=== PATIENT | male | born 1935 | race American Indian/Alaskan Native ===

== ENCOUNTER 2024-03-26 13:57 | Outpatient (RCR) | payer MEDICARE, OTHER, SELFPAY ==
--- NOTE | 2024-04-09 01:17 | CTCFLWUP_ITS ---
Patient: MIKE GREEN : 1935 Page 4 of 5 FOLLOW UP NOTE DATE OF SERVICE: 03/26/2024 NAME: MIKE GREEN ACCOUNT: [id number] : 1935 AGE: 89 INTERVAL HISTORY: Patient doing well. HISTORY OF PRESENT ILLNESS: Mr. Green is a 89-year-old Indian male who was seen in our clinic recently becaus e of leukocytosis, and various immature cells in the peripheral blood. 02/08/2022: WBC 56.2, ANC 20.8, metamyelocytes 5%, bands 2%, myelocytes 14%, promyelocytes 3%, blast/ blast like cells 1%, basophils 20%, eosinophils 11%. 02/24/2022: WBC 106.2, hemoglobin 13.3, platelets 866,000, basos 10%, bands 8%, metamyelocytes 8%, my elocytes 20%, promyelocytes 3%, blast/blast leg cells 1%, creatinine 1.66, uric acid 10.c6 05/05/2022: WBC count 137.5, hemoglobin 12.2, platelets 554,000, creatinine 1.5 05/12/2022 - 05/30/2022: Patient was on imatinib 400 mg p.o. daily. Unfortunately he was not able to to lerate it. He developed significant facial swelling, shortness of breath as well as bilateral lower extremity swelling requiring him to be treated with Lasix. 06/25/2022: BCR?ABL transcript level 10/18/2022: WBC count 154.7, hemoglobin 13.0, platelets 664,000, creatinine 1.62 10/19/2022: Mr. Green was started on Sprycel 20 mg p.o. daily. EKG 07/13/2022: ECHO 07/13/2022: XR CHEST 2V 07/13/2022: 02/07/2023: WBC 8.0, ANC 6.8, basophil 0.5, immature granulocytes 0%, OTHER MEDICAL HISTORY/CONDITIONS: HTN? 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 Tobacco?Pack?per?Day:?1 Tobacco?Use?Years:?20 Tobacco?Use:?Quit?30?yrs?ago ETOH Use:?3-5 beers ; 3-4 days/week x 40yrs Drug?Note:?Denies Social?History?Note:?Lives?alone MEDICATIONS: 1. allopurinol - 300 mg 1 tab Daily 2. Lasix - 40 mg 1 tab Each Day 3. lisinopril - 10 mg 1 tab Daily 4. omeprazole - 20 mg 1 Capsule Daily 5. rosuvastatin - 10 mg 1 tab Daily 6. Sprycel - 20 mg 1 tab As directed Medications Last Reconciled by Nguyen Bishop MA on 03/26/2024 ALLERGIES: No Known Drug Allergies REVIEW OF SYSTEMS: A complete 14-point review of systems was performed and is negative except as noted in interval histo ry. PHYSICAL EXAMINATION: VITAL SIGNS: Temperature?98.2, B/P?153/77, Oxygen?Saturation?93% Weight?195.2?lbs PAIN: 0 - No pain ECOG Performance Status: 0 - Asymptomatic and fully active GENERAL APPEARANCE: Appears well, in no apparent distress, appropriately interactive. HEENT: Normocephalic, no temporal wasting, normal conjunctiva, no scleral icterus, normal hearing, li ps without lesions, neck normal range of motion. CARDIOVASCULAR: Not assessed. PULMONARY: Normal respiratory effort, no respiratory distress or use of accessory muscles, speaking i n full sentences, no tachypnea. EXTREMITIES: No pedal edema or cyanosis. SKIN: Normal skin appearance. NEUROLOGIC: Alert and oriented x4. PSHYCHIATRIC: Appropriate affect, mood normal, behavior normal, intact thought and speech. LABORATORY DATA: I have personally reviewed and interpreted each of the patient?s relevant lab tests, abnormal finding s are below: Date 02/03/24 ??WHITE?BLOOD?COUNT?(Thou/mm3) 6.5 ??RED?BLOOD?COUNT?(Miln/mm3) 4.08?L ??HEMOGLOBIN?(gm/dl) 12.7?L ??HEMATOCRIT?(%) 37.8?L ??PLATELET?COUNT?(Thou/mm3) 245 ??NEUTROPHILS?%,?AUTO?(%) 75 ??LYMPH?%,?AUTO?(%) 14 ??NEUTROPHILS,?AUTO?(Thou/mm3) 4.9 ASSESSMENT/PLAN: 1. Chronic myelogenous leukemia. Chronic phase. Currently Mr. Green is on Sprycel 20 mg p.o. 3 times a week. He was not able to tolerate Sprycel 20 mg p.o. daily which unfortunately was causing bilateral leg swelling. His WBC has normalized. BCR/ABL transcript levels are slowly coming down unable to tolerate imatinib. Skin rash resolved. 2. Hypertension 3. Coronary artery disease. Currently being followed by Dr. Page Paredes 1. Sprycel to 20 mg p.o 4 times a week. 2. I will see him back in clinic in 2 months with CBC, CMP as well as BCR/ABL transcript levels drawn prior to the visit.. ORDERS: Cbc,cmp,bcr/abl RETURN TO CLINIC: 3 months BILLING AND COMPLIANCE: I reviewed external records from providers outside my specialty as summarized above. I spent a total of 50 minutes on this patient?s care on the day of their visit excluding time spent related to any bi lled procedures. This time includes time spent with the patient as well as time spent documenting in the medical record, reviewing patients records and tests, obtaining history, placing orders, communi cating with other healthcare professionals, counseling the patient, family or caregiver, and/or care coordination for the diagnoses above. Electronically Signed by: Chris Simon MD T: 1:14 AM CC: ??Angela?oJao?Olaf?Joao,? PCP: Job Willett Referring: Job Willett This document was completed utilizing speech recognition software. Grammatical errors, random word in sertions, pronoun errors, and incomplete sentences are an occasional consequence of this system due t o software limitations, ambient noise, and hardware issues. Any formal questions or concerns about th e content, text or information contained within the body of this dictation should be directly address ed to the provider for clarification.
== END 2024-04-10 23:59 | disposition home or self-care (01) ==
LOC: SCTC 13:57
PROVIDERS: PCP Physician Assistant; Referring Provider Physician Assistant; Visit Provider Internal Medicine Hematology & Oncology
DX: C92.10 Chronic myeloid leukemia, BCR/ABL-positive, not having achieved remission (principal); I10 Essential (primary) hypertension; I25.10 Atherosclerotic heart disease of native coronary artery without angina pectoris
CPT/HCPCS: 99212; G0463

== ENCOUNTER 2024-07-23 09:56 | Outpatient (RCR) | payer MEDICARE, OTHER, SELFPAY | END 2024-08-08 23:59 | disposition home or self-care (01) | LOC: SCTC 09:56 | PROVIDERS: Referring Provider Internal Medicine Hematology & Oncology; Visit Provider Nurse Practitioner Family | DX: C92.10 Chronic myeloid leukemia, BCR/ABL-positive, not having achieved remission (principal) | CPT/HCPCS: 99212; G0463 ==

== ENCOUNTER 2024-10-05 09:04 | Emergency (ER) | payer MEDICARE, OTHER, SELFPAY ==
--- NOTE | 2024-10-05 | XR_ITS ---
MRI abdomen, without contrast. MRCP Date and time of exam: October 05, 2024 1608 hours INDICATIONS: No bowel movement 3 days, vomiting 2 days, elevated bilirubin on laboratory examination today, suspicious for a 9 mm stone in the distal common bile duct on CT abdomen pelvis study today Technique: Multiple axial and coronal images of the abdomen have been obtained with the Siemens 1.5T MRI scanner. Images obtained included T1 weighted transverse images, T2-weighted transverse images, T2-weighted transverse images fat-suppressed, T2 weighted haste fat suppressed transverse images, T1 weighted images, in and out of phase images, T2-weighted coronal images, breath hold, T2 weighted haze coronal images as well as T2 weighted coronal thick slab images, MRCP. Findings: Intrahepatic biliary duct dilatation 8 mm cyst upper right lobe of the liver Hepatomegaly 17 cm No gallstones, gallbladder wall is not thickened Enlarged common hepatic common bile duct measuring up to 12 mm 8 mm impacted stone in the distal common bile duct coronal image 14 No pancreatic mass, pancreatic duct is not dilated Splenomegaly 14 cm cyst at the upper pole of the right kidney 7.6 cm No ascites Aorta normal size No hydronephrosis IMPRESSION: Extrahepatic biliary tract obstruction secondary to 8 mm impacted stone in the distal common bile duct, recommend ERCP follow-up
[2024-10-05 09:20] VITALS: BP 138/69; PULSE 70; RESP 18; TEMP 36.5; O2SAT 96; BMI 25.8
--- NOTE | 2024-10-05 09:32 | XR_ITS ---
Examination: CT abdomen and pelvis without contrast. Coronal 3-D reconstructions. Sagittal 2-D reconstructions. Date and time of exam:October 05, 2024 1019 hours INDICATIONS: Lower abdominal pain constipation 5 days CTDI: vol (mGy): 8.62 DLP: (mGycm): 571 Technique: Axial images of the abdomen have been obtained, 3 mm slice thickness Intravenous contrast material has not been administered. Low dose protocols were performed. One or more of the following dose reduction techniques were used; automated exposure control, adjustment of the mA and/or KV according to patient size, use of iterative reconstruction technique. Findings: 15 mm calcified granuloma left lower lobe Mild enlargement cardiac contour Mild intrahepatic biliary tract dilatation No gallstones Extrahepatic biliary tract dilatation, common hepatic duct 20 mm common bile duct 10 mm, coronal image 69 consistent with 9 mm stone in the distal common bile duct No pancreatic mass Renal arterial calcifications, no hydronephrosis Heavy abdominal aortic calcification No bowel obstruction Normal appendix Colonic diverticulosis AP prostate dimension 3.8 cm Contracted urinary bladder with urinary bladder wall thickening up to 6 mm Severe osteopenia Moderate to advanced narrowing hip joints IMPRESSION: Extrahepatic biliary tract obstruction, suspicious for 9 mm stone in the distal common bile duct If the patient's cardiac leads are MRI compliant, recommend MRCP follow-up, otherwise recommend ERCP follow-up
--- NOTE | 2024-10-05 09:33 | PD.EDRME ---
Rapid Medical Screening Exam RME Arrival date/time: 10/05/24 09:04 89-year-old male with a history of hypertension, hyperlipidemia presents to the emergency room with a chief complaint of 9 out of 10 abdominal pain, distention, vomiting, constipation x 3 days I have greeted and performed a focused initial assessment of this patient. A comprehensive ED assessment and evaluation of the patient, analysis of all test results, and completion of the medical decision making process will be conducted by additional ED providers. Chief Complaint: Nausea/Vomiting/Diarrhea Vital signs: Vital Signs Temperature 97.7 F 10/05/24 09:20 Pulse Rate 70 10/05/24 09:20 Respiratory Rate 18 10/05/24 09:20 Blood Pressure 138/69 H 10/05/24 09:20 Pulse Oximetry (%) 96 10/05/24 09:20 Oxygen Delivery Method Room Air 10/05/24 09:20 Vital signs reviewed by provider: Yes
[2024-10-05 10:08] LABS: Collection Type, Urine Clean Catch
[2024-10-05 10:19] LABS: Bacteria,Urine Rare; Bilirubin,Urine 2+ (Negative); Blood,Urine Negative (Negative); Clarity,Urine Clear (Clear/Hazy); Color,Urine Drk-Yellow (Lt Yel-Yel); Glucose, Urine Negative (Negative); Ketones,Urine Negative (Negative); Leukocyte Esterase,Urine Negative (Negative); Nitrite,Urine Negative (Negative); Protein,Urine 2+ (Neg - Trace); RBC,Urine 4 /hpf (0-3); Specific Gravity,Urine 1.025 (1.001-1.035); Squamous Epithelial Cell,Urine 1 /hpf (0-5); WBC,Urine 3 /hpf (0-5)
[2024-10-05 10:23] LABS: Basophils # (Auto) 0.1 Thou/mm3 (0.0-0.2); Basophils % (Auto) 0 % (0-2.5); Eosinophils % (Auto) 0 % (0-10); Hematocrit 38.8 % (41.0-53.0); Hemoglobin 13.2 g/dL (13.5-16.0); Immature Granulocytes % (Auto) 0 % (0-0); Immature Granulocytes Auto 0.05 Thou/mm3 (0.00-0.00); Lymphocytes # (Auto) 0.6 Thou/mm3 (1.0-4.8); Lymphocytes % (Auto) 4 % (10-50); Mean Corpuscular Hemoglobin 31.3 pg (25.0-35.0); Mean Corpuscular Volume 92 fL (80-100); Monocytes # (Auto) 0.9 Thou/mm3 (0.0-0.8); Monocytes % (Auto) 5 % (0-12); Neutrophils # (Auto) 14.6 Thou/mm3 (1.8-7.7); Neutrophils % (Auto) 90 % (37-80); Nucleated Red Blood Cell % 0 /100 WBC (0); Platelet Count 223 Thou/mm3 (140-440); RDW Standard Deviation 54.4 fL (35.1-43.9); Red Blood Count 4.22 Miln/mm3 (4.50-5.90); White Blood Count 16.1 Thou/mm3 (3.8-10.6)
[2024-10-05 10:42] LABS: Alanine Aminotransferase 142 U/L (10-49); Albumin, Serum 4.6 gm/dL (3.4-4.8); Albumin/Globulin Ratio 1.3 (1.2-2.2); Alkaline Phosphatase 487 U/L (46-116); Anion Gap 12 (7-16); Aspartate Amino Transferase 101 U/L (0-34); BUN/Creatinine Ratio 14 Ratio (12-20); Bilirubin,Total 4.9 mg/dL (0.3-1.2); Blood Urea Nitrogen 19 mg/dL (9-23); Calcium 9.3 mg/dL (8.3-10.6); Calcium (Corrected) 9.3 mg/dL (8.5-10.1); Carbon Dioxide 24.3 mMol/L (20.0-31.0); Chloride 101 mMol/L (98-107); Creatinine (Component) 1.4 mg/dL (0.6-1.3); Estimated Creatinine Clearance 38.4 mL/min (>60); Globulin 3.5 gm/dL (2.3-3.5); Glucose 134 mg/dL (74-106); Lipase 40 U/L (12-53); Osmolality,Calculated 278 (275-295); Potassium 3.8 mMol/L (3.4-5.1); Sodium 137 mMol/L (136-145); Total Protein 8.1 gm/dL (5.7-8.2); eGFR 49 See Note
--- NOTE | 2024-10-05 11:35 | EDNOTE_ITS ---
<Statement entered by Lianne Richardson MD - 10/05/24 23:25> As co-signing physician, I was present and available for consult prn. I concur with the plan and care as documented by the midlevel provider. ED Abdominal Pain RME/HPI General Chief Complaint: Nausea/Vomiting/Diarrhea Stated complaint: No BM X 3 days, Vomiting X 2 days Time seen by provider: 10/05/24 11:17 Arrival date/time: 10/05/24 09:04 RME / HPI RME / HPI narrative: 89-year-old male patient with significant history of hypertension, hyperlipidemia and and had a pacemaker, came in for evaluation regarding right upper quadrant pain. Patient is having right upper quadrant pain for the last 5 days, associated with distention, vomiting, and constipation for 3 days. Patient denies any fever denies any other complaints no medications taken prior to arrival. Related Data Home Medications ?Medication ?Instructions ?Recorded ?Confirmed omeprazole magnesium 20 mg 20 mg PO QDAY 11/11/2010/30 capsule,delayed release rosuvastatin 10 mg tablet 10 mg PO QDAY 11/11/2002/15 clopidogrel 75 mg tablet 75 mg PO QDAY 02/15/2202/15 hydroxyzine HCl 10 mg tablet 10 mg PO Q4H PRN Allergy Symptoms 02/15/22 02/15/22 lisinopril 10 mg tablet 10 mg PO BID 02/15/22 Allergies Allergy/AdvReac Type Severity Reaction Status Date / Time No Known Drug Allergies Allergy Verified 10/05/24 09:13 Review of Systems Review of Systems Narrative Review of Systems: Review of system reviewed and within normal limits except mentioned in HPI ED Exam Narrative Physical exam: VITAL SIGNS: Reviewed. GENERAL APPEARANCE: Alert and interactive, follows commands, no acute distress, HEAD AND FACE: Non-traumatic. ENT: PERRL, pink conjunctivitis, eyelid no trauma, Mucous membrane moist. NECK: Supple, nontender, no nuchal rigidity. CHEST: No tenderness, no crepitus, no paradoxical movement, no retractions. LUNGS: Clear, well ventilated, symmetric, no rales, no wheezing, no ronchi, no stridor, good breath sounds bilaterally. HEART: Regular rate, regular rhythm, no murmur, no gallops. ABDOMEN: Soft, positive bowel sounds, nondistended, no guarding, right upper quadrant tenderness, no rebound, no masses, RECTAL: Deferred. GENITAL: Deferred. NEUROLOGICAL: Gross motor function intact sensory function intact, Appropriate for age. MUSCULOSKELETAL: low back nontender, full range of motion. EXTREMITIES: Nontender, full range of motion. SKIN: Color pink, dry, no rash, no lacerations, no abrasions, no contusions. LYMPHATICS: Deferred. Course Quality Measures none Orders Category Date Time Status Enema Administration ONCE Care 10/05/24 11:30 Active MRI Screening NOW Care 10/05/24 11:31 Active MRI Screening NOW Care 10/05/24 11:35 Active Referral - Newspaper Delivery Driver Stat Cons 10/05/24 17:[address] abdomen pelvis wo con Stat Exams 10/05/24 09:32 Completed MR MRCP Stat Exams 10/05/24 Completed CBC Stat Lab 10/05/24 10:14 Completed CMP [Comprehensive Metabolic Panel] Stat Lab 10/05/24 10:14 Completed Lipase Stat Lab 10/05/24 10:14 Completed UA [Urinalysis] Stat Lab 10/05/24 10:02 Completed Urine Culture Stat Lab 10/05/24 10:02 Received HYDROcodone*/APAP 5/325 [Edelstein 5/325] Med 10/05/24 09:32 Discontinued 1 tab PO X1 ONE Metoclopramide Inj [Reglan Inj] Med 10/05/24 11:30 Discontinued 10 mg IVP X1 ONE Morphine Inj Med 10/05/24 11:30 Discontinued 4 mg IVP X1 ONE Ondansetron Odt [Zofran Odt] Med 10/05/24 09:32 Discontinued 4 mg PO X1 ONE Piper/Tazo 3.375 gm Premix [Zosyn] Med 10/05/24 11:54 Discontinued 3.375 gm in 50 ml IV X1 Sodium Chloride 0.9% 1000 ml [Ns] 1,000 ml Med 10/05/24 11:55 Discontinued IV 999 mls/hr Vital Signs Vital signs: Vital Signs Temperature 97.7 F 10/05/24 09:20 Pulse Rate 70 10/05/24 09:20 Respiratory Rate 18 10/05/24 09:20 Blood Pressure 138/69 H 10/05/24 09:20 Pulse Oximetry (%) 96 10/05/24 09:20 Oxygen Delivery Method Room Air 10/05/24 09:[address] [facility] Narrative [facility] Narrative:: 89-year-old male patient with significant history of hypertension, hyperlipidemia and and had a pacemaker, came in for evaluation regarding right upper quadrant pain. Patient is having right upper quadrant pain for the last 5 days, associated with distention, vomiting, and constipation for 3 days. Patient denies any fever denies any other complaints no medications taken prior to arrival. Patient CBC showed leukocytosis of 16.1. CMP significant for creatinine 1.4 total bili 4.9 AST 1 1 ALT 142 alkaline phos 487. MRCP showed Extrahepatic biliary tract obstruction secondary to 8 mm impacted stone in the distal common bile duct, recommend ERCP follow-up Spoke with transfer center from [facility] and Dr. Neely, who accepted the transfer. Patient data External records reviewed:: None Clinical information provided by:: patient and family Social determinants that could affect healthcare access:: none Patient has the following chronic illnesses:: Hypertension How is presenting disease/condition affected by chronic disease/condition?: uneffected by Evaluation data The following diagnostics were reviewed and interpreted by me:: lab results and radiology exam(s) Lab and/or radiology exams considered but not ordered:: None Interpretation Summary: See results [facility] Medications / Prescriptions Medications or Prescriptions considered but not ordered:: none Medication administrations:: Medication Administration History Discontinued Medications Hydrocodone Bitart/Acetaminophen (Hydrocodone/Apap 5/325 Tablet) 1 tab PO X1 ONE Stop: 10/05/24 09:33 Last Admin: 10/05/24 11:40 Dose: 1 tab Documented By: EDGARDO Piperacillin/Tazobactam/Dextrose (Zosyn) 3.375 gm in 50 mls @ 100 mls/hr IV X1 ONE Stop: 10/05/24 12:23 Last Infusion: 10/05/24 13:46 Dose: Infused Documented By: Admin: 10/05/24 13:16 Dose: 100 mls/hr Documented By: BEATRICE Sodium Chloride (Ns) 1,000 mls @ 999 mls/hr IV .Q1H1M ONE Stop: 10/05/24 12:55 Last Infusion: 10/05/24 14:16 Dose: Infused Documented By: Admin: 10/05/24 13:15 Dose: 999 mls/hr Documented By: BEATRICE Metoclopramide HCl (Metoclopramide Inj 5 Mg/Ml Vial 2 Ml) 10 mg IVP X1 ONE; Protocol Stop: 10/05/24 11:31 Last Admin: 10/05/24 13:19 Dose: Not Given Documented By: TM Non-Admin Reason: Patient Refused Morphine Sulfate (Morphine Sulf Inj 10 Mg/Ml Vial) 4 mg IVP X1 ONE Stop: 10/05/24 11:31 Last Admin: 10/05/24 12:35 Dose: Not Given Documented By: TM Non-Admin Reason: Other, see note Ondansetron HCl (Ondansetron Odt 4 Mg Tabrap) 4 mg PO X1 ONE; Protocol Stop: 10/05/24 09:33 Last Admin: 10/05/24 12:36 Dose: Not Given Documented By: TM Non-Admin Reason: Patient Refused IV Zosyn Zofran morphine Reglan IV fluids Consultations Consultation(s) initiated? (list below): No Diagnosis Differential diagnosis abdominal pain: abdominal pain and calculus of kidney Most likely diagnosis given after review of the tests above:: Obstructive jaundice, choledocholithiasis Admission Indicated Admission indicated?: indicated Admission Request Was there a request for admission?: No Disposition Plan Disposition Plan: Transfer Discharge Plan Plan Patient Disposition: [facility] Pt Being Transferred to: [facility] Prescriptions/Referrals Prescriptions/Med Rec: No Action rosuvastatin 10 mg Tablet 10 mg PO QDAY omeprazole magnesium 20 mg Capsule,Delayed Release(Dr/Ec) 20 mg PO QDAY clopidogrel 75 mg tablet 75 mg PO QDAY Patient Comments: TAKE 1 TABLET BY MOUTH EVERY DAY lisinopril 10 mg tablet 10 mg PO BID Patient Comments: TAKE 1 TABLET BY MOUTH TWICE DAILY hydroxyzine HCl 10 mg tablet 10 mg PO Q4H PRN (Reason: Allergy Symptoms) Patient Comments: TAKE 1 TABLET BY MOUTH EVERY 4 HOURS NEEDED Referrals: Job Willett PA-C [Primary Care Provider] - In 1 week Problem List Clinical Impression: Choledocholithiasis, Obstructive jaundice Patient/Caregiver Discharge Instructions Print Language: [place] Islander Stand Alone Forms: [employer] Award Info., Patient Portal Info Letter
[2024-10-05] MEDS: HYDROcodone/APAP 5/325 TABLET 1 TAB PO (11:40)
[2024-10-05 12:10] VITALS: BP 131/71; PULSE 84; RESP 18; TEMP 36.7; O2SAT 94
--- NOTE | 2024-10-05 12:33 | PC.NURSE ---
called MRI at this time to speak about pts pacemaker, no answer will attempt again
--- NOTE | 2024-10-05 12:59 | PC.NURSE ---
unable to get iv established, fellow RN to attempt
[2024-10-05] MEDS: SODIUM CHLORIDE 0.9% 1000 ML 1,000 ML 999 ML IV (13:15)
[2024-10-05] MEDS: PIPER/TAZO 3.375 GM PREMIX 3.375 GM/50 ML BAG IV (13:16)
[2024-10-05 14:00] VITALS: BP 104/64; PULSE 85; RESP 18; TEMP 36.4; O2SAT 96
[2024-10-05 15:55] VITALS: BP 127/61; PULSE 84; RESP 18; TEMP 36.5; O2SAT 97
[2024-10-05 18:00] VITALS: BP 136/57; PULSE 80; RESP 18; TEMP 36.7; O2SAT 94
--- NOTE | 2024-10-05 19:30 | PC.NURSE ---
Tie In Machine Operator assumes care of patient at this time, pt denies any pain or acute distress at this time, family member noted to be at bedside
--- NOTE | 2024-10-05 21:30 | PC.NURSE ---
Pt continues to rest with no c/o pain or acute distress at this time
--- NOTE | 2024-10-05 21:30 | PC.NURSE ---
2018- [facility] contacted for possible transfer- packet faxed over. Rajeev at [facility] [employer] stated the GI carbon lamp cleaner can do ERCP's but stated that the transfer center nurse was busy upstairs working on a transfer and would relay the message that the packet was faxed-would review the information when she got back
--- NOTE | 2024-10-05 21:39 | PC.NURSE ---
Lashawn at [facility] stated they will contact the GI real estate professional- to see if they would do ERCP.
--- NOTE | 2024-10-05 22:06 | PC.NURSE ---
[facility] accepts ED to ED report to be called to [phone]. Abigail Neely accepts. EMS arrangements for transfer faxed
[2024-10-05 22:11] VITALS: BP 160/71; PULSE 74; RESP 16; TEMP 36.8; O2SAT 94
--- NOTE | 2024-10-05 22:30 | PC.NURSE ---
Report called to [facility]. Report received by Tom Anderson
== END 2024-10-05 23:16 | disposition short-term general hospital (02) ==
PROVIDERS: Nurse Practitioner Family; Emergency Provider Emergency Medicine; PCP Physician Assistant
DX: K80.51 Calculus of bile duct without cholangitis or cholecystitis with obstruction (principal); E78.5 Hyperlipidemia, unspecified; I10 Essential (primary) hypertension
CPT/HCPCS: 36415; 74176; 80053; 81001; 83690; 85025; 87077; 87086; 87186; 96365; 99285; J2543; J7030; S8037; 74181; A9270

== ENCOUNTER → 2025-03-28 | Outpatient (CLI) | payer MEDICARE, OTHER, SELFPAY ==
--- NOTE | 2025-03-28 13:33 | XR_ITS ---
EXAMINATION: PA lateral chest 2 views TECHNIQUE: Upright PA lateral chest 2 views Date and time: March 28, 2025, 1347 hours, comparison July 13, 2022 INDICATIONS: Chronic coughing FINDINGS: Normal heart size Calcified mediastinal lymph nodes Cardiac leads satisfactory position. No pneumonia or pulmonary edema Accentuation basilar bronchovascular markings Prominent osteopenia IMPRESSION: Basilar bronchitis pattern
== END | disposition home or self-care (01) ==
PROVIDERS: PCP Physician Assistant; Referring Provider Nurse Practitioner Family; Visit Provider Nurse Practitioner Family
DX: R05.3 Chronic cough (principal)
CPT/HCPCS: 71046